=== PATIENT | female | born 1990 | race Caucasian/White ===

== ENCOUNTER 2016-09-13 12:59 | Emergency (ER) | payer MEDICAID, SELFPAY ==
[~2016-09-13] VITALS: Ht 160 cm; Wt 83.9 kg
[2016-09-13 13:00] VITALS: BP 125/70
[2016-09-13] MEDS ORDERED: DEPO150I IM (13:15)
[2016-09-13] MEDS ORDERED: CLAR5TAB7 PO (13:48)
[2016-09-13] MEDS ORDERED: AUGM875T28 PO (13:48)
== END 2016-09-13 13:58 | disposition home or self-care (01) ==
LOC: M ED 13:54
DX: J01.90 Acute sinusitis, unspecified (principal); R05 Cough; F17.200 Nicotine dependence, unspecified, uncomplicated

== ENCOUNTER → 2017-03-23 | Outpatient (REF) | payer OTHER ==
[~2017-03-23] MED LIST: AUGM875T28 PO; CLAR5TAB7 PO; DEPO150I IM
[2017-03-24 12:10] LABS: ALBUMIN 4.1 GM/DL (3.2-5.2); ALBUMIN/GLOBULIN RATIO 1.14 (1.00-1.93); ALKALINE PHOSPHATASE 69 U/L (45-117); ALT/SGPT 34 U/L (12-78); ANION GAP 8 MEQ/L (8-16); AST/SGOT 16 U/L (7-37); BILIRUBIN,TOTAL 0.4 MG/DL (0.2-1.0); BLOOD UREA NITROGEN 16 MG/DL (7-18); CALCIUM LEVEL 9.1 MG/DL (8.5-10.1); CARBON DIOXIDE LEVEL 28 MEQ/L (21-32); CHLORIDE LEVEL 105 MEQ/L (98-107); CHOLESTEROL LEVEL 198 MG/DL (<200); CREATININE FOR GFR 0.77 MG/DL (0.55-1.02); FREE T4 0.95 NG/DL (0.76-1.46); GLOMERULAR FILTRATION RATE > 60.0 (>60); GLUCOSE, FASTING 83 MG/DL (70-105); POTASSIUM SERUM 4.4 MEQ/L (3.5-5.1); SODIUM LEVEL 141 MEQ/L (136-145); TOTAL PROTEIN 7.7 GM/DL (6.4-8.2); TRIGLYCERIDES LEVEL 205 MG/DL (<150)
== END ==
LOC: M SFHCCLAY 14:42
PROVIDERS: ATTEND Family Medicine
DX: R63.5 Abnormal weight gain (principal)

== ENCOUNTER → 2017-10-11 | Outpatient (CLI) | payer MEDICAID, SELFPAY | LOC: M OUTALCOH 10:25 | DX: Z13.9 Encounter for screening, unspecified (principal); F10.10 Alcohol abuse, uncomplicated; F17.200 Nicotine dependence, unspecified, uncomplicated ==

== ENCOUNTER 2017-10-21 14:20 | Outpatient (RCR) | payer MEDICAID, SELFPAY | END 2017-11-02 | LOC: M OUTALCOH 14:20 | DX: F10.10 Alcohol abuse, uncomplicated (principal); F17.200 Nicotine dependence, unspecified, uncomplicated ==

== ENCOUNTER 2017-12-09 15:41 | Outpatient (RCR) | payer MEDICAID | END 2018-01-02 | LOC: M OUTALCOH 15:41 | DX: F10.10 Alcohol abuse, uncomplicated (principal); F17.200 Nicotine dependence, unspecified, uncomplicated ==

== ENCOUNTER 2018-10-07 21:13 | Emergency (ER) | payer MEDICAID, OTHER ==
[~2018-10-07] VITALS: Ht 160 cm; Wt 85.9 kg
[2018-10-07] MEDS ORDERED: PENI500T PO (22:24)
[2018-10-07] MEDS ORDERED: PENICILLIN V POTASSIUM 500 MG TAB PO ONE (22:30)
[2018-10-07 22:36] VITALS: BP 128/77
== END 2018-10-07 22:44 | disposition home or self-care (01) ==
LOC: M ED 21:13
DX: J02.9 Acute pharyngitis, unspecified (principal); Z79.899 Other long term (current) drug therapy; Z79.3 Long term (current) use of hormonal contraceptives

== ENCOUNTER → 2021-04-07 | Outpatient (CLI) | payer OTHER ==
[~2021-04-07] MED LIST changes: +PENI500T PO
== END ==
LOC: M LABSMTC 11:54
PROVIDERS: ATTEND Pediatrics
DX: Z20.822 Contact with and (suspected) exposure to COVID-19 (principal)

== ENCOUNTER → 2022-08-13 | Outpatient (CLI) | payer OTHER | LOC: M RAD 16:44 | PROVIDERS: ATTEND Physician Assistant | DX: M25.511 Pain in right shoulder (principal) ==

== ENCOUNTER → 2023-05-06 | Outpatient (REF) | payer OTHER | LOC: M SFHCCLAY 15:16 | PROVIDERS: ATTEND Nurse Practitioner Family | DX: J32.9 Chronic sinusitis, unspecified (principal); B97.21 SARS-associated coronavirus as the cause of diseases classified elsewhere ==

== ENCOUNTER → 2024-01-24 | Outpatient (REF) | payer OTHER | LOC: M LAB REF 21:16 | PROVIDERS: ATTEND Physician Assistant Medical | DX: B34.9 Viral infection, unspecified (principal) ==